=== PATIENT | female | born 1985 | race African-American/Black ===

== ENCOUNTER 2019-10-10 13:47 | Emergency (ER) | payer SELFPAY ==
[~2019-10-10] VITALS: Ht 157.5 cm; Wt 77.1 kg
[2019-10-10 13:58] VITALS: BP 123/84; Ht 157.5 cm; Wt 77.1 kg
[2019-10-10 16:21] LABS: BASOPHIL % 0.4 % (0-2); PLATELET COUNT 341 x10^3mcL (130-400); RED CELL DISTRIBUTION WIDTH 18.1 % (11.5-14.5)
== END 2019-10-10 16:55 | disposition left against medical advice (07) ==
LOC: ED 13:47
DX: N93.8 Other specified abnormal uterine and vaginal bleeding (principal); F17.210 Nicotine dependence, cigarettes, uncomplicated; E11.9 Type 2 diabetes mellitus without complications; Z98.890 Other specified postprocedural states
CPT/HCPCS: 36415; 99406